=== PATIENT | male | born 1970 | race Caucasian/White ===

== ENCOUNTER 2016-12-15 08:21 | Day surgery (SDC) | payer SELFPAY ==
[~2016-12-15] VITALS: Ht 185.4 cm; Wt 73.2 kg
[~2016-12-15 08:21] MED LIST: FLEXERIL10 MG PO; HYDROCODON-ACE1 EA16 PO; IBUPROFEN600 MG PO; NORCO 5/325 TAB1 TAB PO
[2016-12-15 10:04] LABS: BASO % 0.6 % (0-2); BASO ABSOLUTE COUNT 0.1 tho/cmm (0.0-0.2); EOS % 1.4 % (0-7); EOSINOPHIL ABSOLUTE COUNT 0.1 tho/cmm (0.0-0.7); IMMATURE GRANULOCYTES ABSOLUTE 0.02 tho/cmm (0-0.03); IMMATURE GRANULOCYTES PERCENT 0.2 % (0-0.3); LYMPH % 25.9 % (20-45); LYMPH ABSOLUTE COUNT 2.5 tho/cmm (0.8-4.5); MCV (MEAN CELL VOLUME) 87.7 fl (82.0-96.0); MEAN PLATELET VOLUME 9.6 cmc (9.4-12.4); MONO % 8.7 % (0-12); MONOCYTE ABSOLUTE COUNT 0.8 tho/cmm (0.0-1.2); NEUTROPHILS % 63.2 % (40-80); PLATELET COUNT 389 tho/cmm (150-450); RED BLOOD COUNT 5.36 mil/cmm (4.40-5.70); RED CELL DISTRIBUTION WIDTH 14.5 % (12.4-16.4); WHITE BLOOD COUNT 9.5 tho/cmm (4.0-10.0)
[2016-12-15 10:07] LABS: HGB-HEMOGLOBIN 15.8 gm/dl (13.5-17.0); MCH (MEAN CORPUSCULAR HGB) 29.4 pg (28.0-32.0); MCHC MEAN CORPUSCULAR HGB CONC 33.6 % (32.0-36.0)
[2016-12-15 10:15] LABS: PROTHROMBIN TIME 23.7 SECONDS (9.0-13.6)
[2016-12-15 10:22] LABS: ANION GAP 13 mmol/L (0-20); BLOOD UREA NITROGEN 38 mg/dl (6-24); CALCIUM 8.3 mg/dl (8.5-10.5); CARBON DIOXIDE-VENOUS 26 mmol/L (22-32); CHLORIDE 96 mmol/l (96-110); CREATININE 1.66 mg/dl (0.60-1.30); GLUCOSE 92 mg/dL (70-110); SODIUM 131 mmol/L (135-145); eGFR VALUE FOR BLACK 57 mL/Min
[2016-12-15 10:23] LABS: POTASSIUM 4.3 mmol/L (3.7-5.1)
[2016-12-15 14:01] LABS: BODY FLUID APPEARANCE CLEAR (CLEAR); BODY FLUID COLOR YELLOW (COLORLESS); BODY FLUID RBC COUNT <1000 cmm (0); BODY FLUID TYPE ASCITIC FLUID; BODY FLUID VOLUME 65 ml; BODY FLUID WBC COUNT 79 cmm
[2016-12-15 14:49] LABS: BODY FLUID LYMPHOCYTES 23 %; BODY FLUID MACROPHAGES 25 %; BODY FLUID MESOTHELIAL CELLS 13 %; BODY FLUID NEUTROPHILS 39 %
== END 2016-12-15 14:45 ==
LOC: SHSC 08:21 → US 08:21
PROVIDERS: Hospitalist; Radiology Diagnostic Radiology
PROC: 0FB03ZX Excision of Liver, Percutaneous Approach, Diagnostic (ICD-10-PCS; principal; 2016-12-15)
PROC: 0W9G3ZX Drainage of Peritoneal Cavity, Percutaneous Approach, Diagnostic (ICD-10-PCS; 2016-12-15)
DX: E85.4 Organ-limited amyloidosis (principal); K77 Liver disorders in diseases classified elsewhere; R18.8 Other ascites; R79.89 Other specified abnormal findings of blood chemistry; I74.8 Embolism and thrombosis of other arteries; Z98.890 Other specified postprocedural states; Z98.818 Other dental procedure status; Z89.029 Acquired absence of unspecified finger(s); Z79.891 Long term (current) use of opiate analgesic
CPT/HCPCS: C1729; J3010; J7030